=== PATIENT | female | born 1960 | race American Indian/Alaskan Native ===

== ENCOUNTER 2018-01-13 12:05 | Day surgery (SDC) | payer OTHER ==
[2018-01-13] MEDS ORDERED: NACL 0.9% 1000 ML 1,000 ML IV SCH (13:00)
[2018-01-13] MEDS ORDERED: DIPRIVAN 10 MG/ML IV ONE (14:47)
--- NOTE | 2018-01-13 14:47 | Anesthesia Consultation ---
Anesthesia Consult and Med Hx Date of service: 01/13/18 - Airway Anesthetic Teeth Evaluation: Poor (missing front bottom) ROM Head & Neck: Adequate Mental/Hyoid Distance: Adequate Mallampati Class: Class III Intubation Access Assessment: Possibly Difficult - Pulmonary Exam CTA: Yes - Cardiac Exam Cardiac Exam: RRR - Pre-Operative Health Status ASA Pre-Surgery Classification: ASA3 Proposed Anesthetic Plan: MAC - Pulmonary Hx Asthma: Yes COPD: Yes - Cardiovascular System Hx Hypertension: Yes - Gastrointestinal Hx Gastroesophageal Reflux Disease: Yes - Endocrine Hx Non-Insulin Dependent Diabetes: Yes - Other Systems Hx Obesity: Yes
--- NOTE | 2018-01-13 14:47 | Anesthesia Day of Surgery ---
Anesthesia Day of Surgery - Day of Surgery Patient Examined: Yes Patient H&P Reviewed: Yes Patient is NPO: Yes
--- NOTE | 2018-01-13 15:16 | Operative Report ---
Operative Report Operative Report: Date: 01/13/2018 Operative Report: Date of procedure: 01/13/2018 Procedure: Esophagogastroduodenoscopy with multiple mucosal biopsies. Attending physician: Tr Locke MD Inventory Taker: Tr Locke MD Indication: Patient is a 57 -year-old female who presents with dysphagia and epigastric pain. An upper endoscopy is done to assess patient, so that treatment may be directed based on the findings. Consent: Informed consent was obtained after advising the patient and family regarding nature of this procedure, its indications, potential benefits as well as possible complications including but not limited to bleeding perforation and adverse reaction to medication, infection as well as other cardiopulmonary complications. An informed written and verbal consent was then obtained after due opportunity was provided for questions and answers. Monitoring: Patient was monitored continuously with pulse oximetry and electrocardiographic recordings as well as blood pressure recordings. Vital signs remained stable throughout this procedure with no untoward events. Preoperative assessment: Patient was assessed immediately prior to this procedure for capacity to tolerate monitored anesthesia care and moderate sedation as well as general anesthesia. Patient's ASA classification is 2, Mallampati class is 2, Hyomental distance is 3. Instrument: [employer] video endoscope Medications: Propofol given intravenously in divided doses. For details please refer to anesthesia records. Description of procedure: Patient was placed in the left lateral decubitus position after achieving sedation, the endoscope was introduced into the esophagus under direct vision. It was then advanced beyond the esophagus into the stomach and then beyond the stomach into the duodenum and to the second portion of the duodenum. It was subsequently withdrawn with careful inspection of all mucosal surfaces with the following findings. Findings: The esophagus was normal. There appeared to be some retained liquids above the gastroesophageal junction however the endoscope passed very easily through the gastroesophageal junction. On retroflexed view in the gastric cardia, patient was noted to have had a Dianna fundoplication with an intact wrap. There are multiple erosions in the gastric antrum and body with surrounding edema and erythema. Biopsies of the antrum were taken for histopathology. The duodenum was normal to second portion. Impression: Status post Dianna fundoplication with an intact wrap Gastric antral erythema Multiple gastric erosions status post biopsies of the antrum Plan: Continue treatment with proton pump inhibitors. Follow pathology report. Patients history of dysphagia is most likely related to a very intact Dianna wrap. Patient is instructed to swallow small amounts and frequent liquid swallows. Patient will be followed up as an outpatient and additional steps taken dependent on her clinical progress. Patient will be observed clinically. Additional recommendations will be made follow-up.
--- NOTE | 2018-01-13 15:17 | Discharge Summary ---
Short Stay Discharge Plan Activity: advance as tolerated Weight Bearing Status: Weight Bear as Tolerated Diet: regular Follow up with: HEMAL DEL REAL MD [Primary Care Provider] - 7 Days
[2018-01-13 15:56] VITALS: BP 122/78
== END 2018-01-13 12:06 | disposition home or self-care (01) ==
LOC: GIO 12:05
PROVIDERS: ATTEND Internal Medicine Gastroenterology
DX: K29.50 Unspecified chronic gastritis without bleeding (principal); B96.81 Helicobacter pylori [H. pylori] as the cause of diseases classified elsewhere; K21.9 Gastro-esophageal reflux disease without esophagitis; J44.9 Chronic obstructive pulmonary disease, unspecified; I10 Essential (primary) hypertension; E66.9 Obesity, unspecified; Z88.2 Allergy status to sulfonamides; Z88.0 Allergy status to penicillin; Z88.1 Allergy status to other antibiotic agents; Z91.040 Latex allergy status; Z68.39 Body mass index [BMI] 39.0-39.9, adult
CPT/HCPCS: 43239; 82962; 88305; 88342; J2704; J7030